=== PATIENT | female | born 1990 | race African-American/Black ===

== ENCOUNTER 2018-11-20 23:23 | Emergency (ER) | payer OTHER ==
[~2018-11-20] VITALS: Ht 162.6 cm; Wt 74.8 kg
[2018-11-20 23:58] LABS: ABSOLUTE NEUTROPHILS 7.5 thou/uL (1.4-8.2); BASOPHILS 0.5 % (0.0-2.0); EOSINOPHILS 0.2 % (0.0-3.0); HEMOGLOBIN 9.8 gm/dL (12.0-15.0); LYMPHOCYTES 11.9 % (24.0-44.0); MCH 27.6 pg (26.0-34.0); MCHC 31.8 g/dL (28.0-37.0); MCV 86.9 fL (80.0-100.0); MONOCYTES 6.9 % (1.0-8.0); PLATELET COUNT 377 thou/uL (150-400); POLYS 80.5 % (36.0-66.0); RBC 3.57 mil/uL (4.20-5.00); RDW 31.3 % (10.5-14.5); WBC 9.3 thou/uL (4.0-11.0)
[2018-11-21 00:13] LABS: ALBUMIN 3.1 g/dL (3.4-5.0); CALCIUM 8.6 mg/dL (8.5-10.1); CREATININE 0.9 mg/dL (0.6-1.0); TOTAL BILIRUBIN 0.3 mg/dL (<0.1-1.0); TOTAL PROTEIN 7.6 g/dL (6.4-8.2)
[2018-11-21 00:14] LABS: POTASSIUM 2.9 mmol/L (3.5-5.1)
[2018-11-21 00:21] LABS: ANISOCYTOSIS 3+; POLYCHROMASIA 1+
[2018-11-21 00:22] LABS: LARGE PLATELETS OCCASIONAL
[2018-11-21 01:58] LABS: URINE BILIRUBIN NEGATIVE (Negative); URINE BLOOD NEGATIVE (Negative); URINE CLARITY CLEAR; URINE COLOR YELLOW; URINE GLUCOSE-RANDOM* NEGATIVE (Negative); URINE KETONES NEGATIVE (Negative); URINE LEUKOCYTES-REFLEX TRACE (Negative); URINE NITRITE-REFLEX NEGATIVE (Negative); URINE PROTEIN (DIPSTICK) NEGATIVE (Negative); URINE SPECIFIC GRAVITY <= 1.005 (1.005-1.035); URINE UROBILINOGEN 0.2 E.U./dl (0.2-1.0)
[2018-11-21 02:20] VITALS: BP 115/73
== END 2018-11-21 02:20 | disposition short-term general hospital (02) ==
LOC: ER 23:23
PROVIDERS: Emergency Medicine
DX: D25.9 Leiomyoma of uterus, unspecified (principal); D64.9 Anemia, unspecified; R10.2 Pelvic and perineal pain; R11.2 Nausea with vomiting, unspecified